=== PATIENT | female | born 1960 | race African-American/Black ===

== ENCOUNTER 2024-04-29 22:48 | Emergency (ER) | payer SELFPAY ==
[2024-04-29 22:50] VITALS: BP 204/111; PULSE 70; RESP 18; TEMP 35.9; O2SAT 98; BMI 25.2
[2024-04-29 23:00] VITALS: BP 213/105; PULSE 81; RESP 17; O2SAT 98
--- NOTE | 2024-04-29 23:12 | CT_ITS ---
STUDY: CT BRAIN WITHOUT CONTRAST REASON FOR EXAM: Female, 64 years old patient with migraine and HTN. RADIATION DOSAGE (If Supplied By Facility): CTDIvol = ( 44.99 ) mGy, DLP = ( 779.24 ) mGycm TECHNIQUE: Transaxial CT imaging of the brain was performed without administration of intravenous contrast material. Individualized dose optimization techniques were used for this CT. COMPARISON: No relevant priors. FINDINGS: Normal soft tissue structures. Normal calvarium. Normal size ventricles and extra-axial spaces for the patient''s age. Normal white matter tracts of the cerebral hemispheres. Normal basal ganglia and thalami. Normal brainstem. Normal cerebellum. There is no intracranial hemorrhage. There are no findings of an acute ischemic infarction. Normal visualized paranasal sinuses. CT/Brain/Head without Contrast IMPRESSION: No CT evidence for mass or acute intracranial hemorrhage. Electronically Signed: Octavia Ambriz MD at 0:13 EDT ,
[2024-04-29 23:18] VITALS: BP 203/95; PULSE 62; RESP 18; O2SAT 95
[2024-04-29 23:24] LABS: Hematocrit 39.6 % (37-47); Hemoglobin 13.1 g/dL (12.0-15.0); Mean Corp Hgb Conc 33.1 g/dL (32-36); Mean Corpuscular Hgb 30.5 pg (27.0-32.0); Mean Corpuscular Volume 92.3 fL (81-99); Mean Platelet Vol. 9.8 fl (6.2-12.0); POSITIVE DIFFERENTIAL YES; POSITIVE MORPHOLOGY YES; Platelet Count 316 K/mm3 (150-450); RBC Distribution Width CV 13.4 % (11.6-14.6); RBC Distribution Width SD 45.6 fl (35.1-43.9); Red Blood Count 4.29 M/mm3 (4.2-5.4)
[2024-04-29] MEDS: hydrALAZINE 20 MG/ML Vial 10 MG IV (23:26)
[2024-04-29] MEDS: Metoclopramide 10 MG/2 ML Vial IV (23:28)
[2024-04-29] MEDS: 0.9% Normal Saline (500mL Bag) 500 ML 1000 ML IV (23:29)
[2024-04-29] MEDS: DiphenhydrAMINE 50 MG/ML Syringe 25 MG IV (23:29)
[2024-04-29 23:30] VITALS: BP 170/93; PULSE 76; RESP 18; O2SAT 99
[2024-04-29 23:38] LABS: Anion Gap 6 (5-15); BUN 18 mg/dL (7-18); BUN/Creat Ratio 22.1 RATIO (10-20); Calcium,Total 8.7 mg/dL (8.5-10.1); Chloride 108 mmol/L (98-107); Creatinine, Serum 0.82 mg/dL (0.55-1.02); EST Glomerular Filtration Rate 75 mL/min (>60); Est Glom Filt Rate - Afr Amer 91 mL/min (>60); Estimated Creatinine Clearance 61.12 ml/min; Glucose 106 mg/dL (74-106); Potassium 3.7 mmol/L (3.5-5.1); Sodium Level 141 mmol/L (136-145)
[2024-04-30] VITALS (8 sets, daily range): BP systolic 148–182; BP diastolic 71–86; PULSE 78–94; RESP 16–19; TEMP 36.7; O2SAT 96–98
--- NOTE | 2024-04-30 00:09 | EDS_ITS ---
HPI History of Present Illness Chief Complaint: Headache Detail of Chief Complaint: Headache and hypertension Informant: patient and spouse/S.O. Onset/Context/Timing Onset: Today Narrative Narrative: Patient presents secondary to right-sided migraine headache. She does report a history of migraines. She also noted her blood pressure was quite elevated tonight. Patient is visiting from [facility] and states that she ran out of her medications about a month ago. She is not scheduled to return home until mid June. PFSH [facility] Medical History Osteoarthritis Gout Prediabetes HTN (hypertension) Home Medications ?Medication ?Instructions ?Recorded ?Last Taken ?Type allopurinol 200 mg tablet 200 mg PO QHS 04/29/24 Unknown History amlodipine 5 mg tablet 5 mg PO DAILY 04/29/24 Unknown History enalapril maleate 5 mg tablet 5 mg PO Q12H 04/29/24 Unknown History furosemide 40 mg tablet 40 mg PO DAILY 04/29/24 Unknown History metformin 500 mg tablet 500 mg PO DAILY 04/29/24 Unknown History simvastatin 20 mg tablet 20 mg PO QHS 04/29/24 Unknown History allopurinol 200 mg tablet 200 mg PO QHS #60 tabs 04/30/24 Unknown Rx amlodipine 5 mg tablet 5 mg PO DAILY #60 tabs 04/30/24 Unknown Rx enalapril maleate 5 mg tablet 5 mg PO BID #120 tabs 04/30/24 Unknown Rx furosemide 40 mg tablet 40 mg PO DAILY #60 tabs 04/30/24 Unknown Rx metformin 500 mg tablet 500 mg PO DAILY #60 tabs 04/30/24 Unknown Rx simvastatin 20 mg tablet 20 mg PO QHS #60 tabs 04/30/24 Unknown Rx Allergy/AdvReac Type Severity Reaction Status Date / Time No Known Allergies Allergy Verified 04/29/24 22:50 Surgical History H/O shoulder surgery Previous section Social History Smoking Status: Current every day smoker tobacco type: cigarettes ROS ROS ED Constitutional Constitutional ED: Denies chills or fever(s) Eyes Eyes: Denies change in vision or discharge from eye(s) ENT ENT ED: Denies discharge from eye(s), rhinorrhea or sore throat Cardiovascular Cardiovascular: Denies chest pain Respiratory/Chest Respiratory/Chest: Denies cough or dyspnea Gastrointestinal Gastrointestinal: Denies abdominal pain, nausea or vomiting Musculoskeletal Musculoskeletal: Denies back pain or extremity pain Integumentary Denies Abrasions or rash Neurologic Neurologic: Reports headache(s); Denies weakness Psychiatric Psychiatric: Denies anxiety or depression Allergic/Immunologic Allergic/Immunologic ED: Denies lip swelling or urticaria EXAM Physical Exam Const Vital Signs: 04/29/24 22:50 04/29/24 23:00 04/29/24 23:18 Temperature 96.6 F L Temperature Source Temporal Pulse Rate 70 81 62 Respiratory Rate 18 17 18 Blood Pressure 204/111 H 213/105 H 203/95 H Blood Pressure Mean 142 141 131 Pulse Ox 98 98 95 Oxygen Delivery Method Room Air Room Air Room Air 04/29/24 23:30 04/30/24 00:15 04/30/24 00:52 Temperature Temperature Source Pulse Rate 76 85 80 Respiratory Rate 18 18 19 H Blood Pressure 170/93 H 165/76 H 148/76 H Blood Pressure Mean 118 105 100 Pulse Ox 99 97 97 Oxygen Delivery Method Room Air Room Air Room Air 04/30/24 01:00 04/30/24 01:21 04/30/24 01:35 Temperature Temperature Source Pulse Rate 81 78 Respiratory Rate 18 18 Blood Pressure 177/85 H 182/83 H 180/86 H Blood Pressure Mean 115 116 117 Pulse Ox 98 98 Oxygen Delivery Method Room Air Room Air 04/30/24 01:46 Temperature Temperature Source Pulse Rate 91 Respiratory Rate 18 Blood Pressure 175/80 H Blood Pressure Mean 111 Pulse Ox 96 Oxygen Delivery Method Room Air Positive well nourished and well developed General Appearance ED: well developed HEENT Reports moist mucous membranes Eyes EOMs intact bilaterally Neck no lymphadenopathy Chest Wall inspection of chest normal and palpation of chest normal Resp normal respiratory effort and clear to auscultation bilaterally Cardio regular rate and regular rhythm GI non-tender Palpation: soft Extremity normal to inspection Neuro oriented x3 and no sensory deficits noted Motor Exam: strength 5/5 throughout Psych mental status grossly normal Skin no rashes or lesions noted MDM MDM MDM Narrative Medical decision making narrative: IV line established. Patient given a dose of hydralazine for blood pressure control. Labwork obtained to evaluate for leukocytosis, anemia, and electrolyte derangement. CT scan of the head obtained given her significantly elevated blood pressure and headache. She was given a dose of Reglan and Benadryl. If no evidence of head bleed noted she will be given a dose of Toradol. History & Record Review Discussion w/independent historian: Patient and Significant other Lab Data Attestation: I reviewed the patient's lab results. Labs: Laboratory Results - last 24 hr 04/29/24 23:17 WBC 9.0 RBC 4.29 Hgb 13.1 Hct 39.6 MCV 92.3 MCH 30.5 MCHC 33.1 RDW Std Deviation 45.6 H RDW Coeff of Shirlene 13.4 Plt Count 316 MPV 9.8 Immature Gran % (Auto) [employer] Neut % (Auto) [employer] Lymph % (Auto) [employer] [place] % (Auto) [employer] Eos % (Auto) [employer] Baso % (Auto) [employer] Absolute Neuts (auto) 2.5 Absolute Lymphs (auto) 5.66 H Total Counted 100 Neutrophils % (Manual) 28 L Lymphocytes % (Manual) 63 H Monocytes % (Manual) 2 Myelocytes % 7 H Nucleated RBC % [employer] Differential Comment SCANNED Diff Path Review May foll Atypical Lymphocytes 1+ Sodium 141 Potassium 3.7 Chloride 108 H Carbon Dioxide 27.0 Anion Gap 6 BUN 18 Creatinine 0.82 Estim Creat Clear Calc 61.12 Est GFR (MDRD) Af Amer 91 Est GFR (MDRD) Non-Af 75 BUN/Creatinine Ratio 22.1 H Glucose 106 Calcium 8.7 Radiography Diagnostic Testing: Clinical Impression(s) from Imaging Studies Brain CT 04/29/24 23:12 IMPRESSION: No CT evidence for mass or acute intracranial hemorrhage. Electronically Signed: Octavia Ambriz MD at 0:13 EDT , Treatment and Re-Evaluation :: CBC was normal white count 9.0 with a hemoglobin of 13.1. Differential does reveal 63% lymphocytes with 20% neutrophils. Chemistry studies largely unremarkable. Glucose is 106. After initial dose of hydralazine, patient's blood pressure did come down to the 140s. It is slowly been climbing back up and she is given a second dose of hydralazine. Patient did receive Toradol in addition to the Benadryl and Reglan. She states her headache is improving. Systolic blood pressure remains in the 170s to 180s and I will give her dose of labetalol prior to discharge. Patient has her medications with her from [facility], but states that they initially only plan to stay 3 months but I decided to extend their trip. The local pharmacies here would not refill her prescriptions as they had been written in [facility]. They referred to the health department she then told t hem to go to the free clinic to get new prescriptions. They state they attempted to contact the free clinic but could not get an answer. I will write her a new prescription for her medications to cover during their trip. Return instructions were provided. Discharge Plan Triage Chief Complaint: Headache ED Provider: Brooke Ye Dx/Rx/DC Orders Clinical Impression: Migraine, Hypertension Instructions: ED Hypertension, Established, ED, Migraine (Classical) Prescriptions: New amlodipine 5 mg tablet 5 mg PO DAILY Qty: 60 0RF enalapril maleate 5 mg tablet 5 mg PO BID Qty: 120 0RF furosemide 40 mg tablet 40 mg PO DAILY Qty: 60 0RF allopurinol 200 mg tablet 200 mg PO QHS Qty: 60 0RF simvastatin 20 mg tablet 20 mg PO QHS Qty: 60 0RF metformin 500 mg tablet 500 mg PO DAILY Qty: 60 0RF No Action furosemide 40 mg tablet 40 mg PO DAILY metformin 500 mg tablet 500 mg PO DAILY enalapril maleate 5 mg tablet 5 mg PO Q12H simvastatin 20 mg tablet 20 mg PO QHS allopurinol 200 mg tablet 200 mg PO QHS amlodipine 5 mg tablet 5 mg PO DAILY Primary Care Provider: Care Physician,No Primary Referrals: Shena Siegel [Non-Staff] - As Needed Care Physician,No Primary [Primary Care Provider] - Print Language: Kinyarwanda Disposition Disposition: Home, Self Care
[2024-04-30 00:33] LABS: Differential Indicated MANUAL DIFF; Lymphocyte 63 % (19-41); Myelocyte 7 % (0-0); Neutrophil-Segmented 28 % (47-70); Total Cells Counted 100 (MANUAL DIFF)
[2024-04-30 00:34] LABS: Absolute Neutrophil Count 2.5 X10^3/uL (2.0-7.7); Atypical Lymphocyte 1+ %; Differential Comment SCANNED; Monocyte 2 % (0-10)
[2024-04-30 00:35] LABS: Absolute Lymphocyte Count 5.66 X10^3/uL (0.83-4.51)
[2024-04-30] MEDS: Ketorolac 15 MG/ML Vial IV (01:08)
[2024-04-30] MEDS: hydrALAZINE 20 MG/ML Vial 10 MG IV (01:34)
[2024-04-30] MEDS: Labetalol (Prefilled) 20 MG/4 ML 10 MG IV (02:24)
[2024-04-30 10:26] LABS: Pathologist Review Reviewed
== END 2024-04-30 02:50 | disposition home or self-care (01) ==
PROVIDERS: Emergency Provider Emergency Medicine; Visit Provider Emergency Medicine
DX: G43.909 Migraine, unspecified, not intractable, without status migrainosus (principal); I10 Essential (primary) hypertension; F17.210 Nicotine dependence, cigarettes, uncomplicated
CPT/HCPCS: 70450; 80048; 85025; 96374; 96375; 99284; J7040; A4216

== ENCOUNTER → 2024-08-26 | Outpatient (CLI) | payer SELFPAY ==
[2024-08-26 17:13] LABS: Cholesterol 175 mg/dL (200); High Density Lipoprotein 64 mg/dL; Triglycerides 120 mg/dL; Uric Acid 4.1 mg/dL (2.6-6.0); Very Low Density Lipoprotein 24 mg/dL (5-40)
[2024-08-26 17:18] LABS: Hemoglobin A1c 5.8 % (3.8-5.6)
== END | disposition home or self-care (01) ==
LOC: BIMLAB 14:35
PROVIDERS: PCP Internal Medicine; Referring Provider Internal Medicine; Visit Provider Internal Medicine
DX: I10 Essential (primary) hypertension (principal); M10.9 Gout, unspecified; R73.03 Prediabetes
CPT/HCPCS: 36415; 80061; 83036; 84550

== ENCOUNTER → 2025-01-22 | Outpatient (CLI) | payer SELFPAY ==
[2025-01-22 16:18] LABS: Hemoglobin A1c 5.9 % (<=5.6)
[2025-01-22 16:41] LABS: Anion Gap 15 (5-15); BUN 16 mg/dL (4-19); BUN/Creat Ratio 19.9 RATIO (10-20); Calcium,Total 9.9 mg/dL (7.6-11.0); Carbon Dioxide 23.8 mmol/L (21.0-32.0); Chloride 102 mmol/L (98-108); Creatinine, Serum 0.79 mg/dL (0.70-1.20); EST Glomerular Filtration Rate 85 (>60); Glucose 112 mg/dL (70-99); Potassium 3.6 mmol/L (3.3-5.1); Sodium Level 141 mmol/L (133-145)
[2025-01-22 16:48] LABS: Rheumatoid Factor < 10.0 IU/mL (<15)
[2025-01-25 14:08] LABS: CCP IgG Antibodies 2 units (0-19)
== END | disposition home or self-care (01) ==
PROVIDERS: PCP Internal Medicine; Referring Provider Internal Medicine; Visit Provider Internal Medicine
DX: I10 Essential (primary) hypertension (principal); M19.90 Unspecified osteoarthritis, unspecified site; R73.03 Prediabetes
CPT/HCPCS: 36415; 80048; 83036; 86200; 86431

== ENCOUNTER → 2025-08-26 | Outpatient (CLI) | payer SELFPAY ==
[2025-08-26 16:40] LABS: Hematocrit 40.3 % (37-47); Hemoglobin 13.6 g/dL (12.0-15.0); Immature Granulocytes Count 0.030 X10^3/uL (0.0-0.0); Mean Corp Hgb Conc 33.7 g/dL (32-36); Mean Corpuscular Volume 87.6 fL (81-99); Mean Platelet Vol. 9.6 fl (6.2-12.0); NRBC Flagged by Analyzer 0 % (0-5); Platelet Count 315 K/mm3 (150-450); RBC Distribution Width CV 13.9 % (11.6-14.6); RBC Distribution Width SD 44.9 fl (35.1-43.9); Red Blood Count 4.60 M/mm3 (4.2-5.4); White Blood Count 9.0 K/mm3 (4.4-11.0)
[2025-08-26 17:23] LABS: AST(SGOT) 23 U/L (<=31); Alanine Aminotransfer ALT/SGPT 16 U/L (<=34); Albumin, Serum 4.8 g/dL (3.4-4.8); Alkaline Phosphatase 71 U/L (35-104); Anion Gap 13 (5-15); BUN 12 mg/dL (4-19); BUN/Creat Ratio 13.8 RATIO (10-20); Calcium,Total 9.7 mg/dL (7.6-11.0); Carbon Dioxide 26.5 mmol/L (21.0-32.0); Chloride 103 mmol/L (98-108); Cholesterol 170 mg/dL (<=200); Globulin 2.9 g/dL (2.2-4.2); Glucose 97 mg/dL (70-99); Low Density Lipoprotein Calc. 76 mg/dL; Potassium 3.8 mmol/L (3.3-5.1); Triglycerides 271 mg/dL; Uric Acid 3.9 mg/dL (2.6-6.0); Very Low Density Lipoprotein 54 mg/dL (5-40); cholesterol:hdl ratio screen 3.39
== END | disposition home or self-care (01) ==
LOC: LAB 15:32
PROVIDERS: PCP Internal Medicine; Referring Provider Internal Medicine; Visit Provider Internal Medicine
DX: I10 Essential (primary) hypertension (principal); R73.03 Prediabetes; M10.9 Gout, unspecified; E78.5 Hyperlipidemia, unspecified
CPT/HCPCS: 36415; 80053; 80061; 84550; 85025